=== PATIENT | female | born 1955 | race Caucasian/White ===

== ENCOUNTER 2022-09-24 07:14 | Inpatient (IN) | payer MEDICARE ==
[2022-09-24] VITALS (39 sets, daily range): BP systolic 53–132; BP diastolic 26–91
[~2022-09-24] VITALS: Ht 157.5 cm; Wt 46.3 kg
[2022-09-24] MEDS ORDERED: SODIUM CHLORIDE 0.9% 1000ML BAG (SEPSIS BOLUS) IV ONE (07:45)
[2022-09-24] MEDS ORDERED: DEXTROSE 50% WATER 50ML SYRINGE IV ONE (08:30)
[2022-09-24 08:56] LABS: BG BASE EXCESS -21.4 mmol/L (-2.0-2.0); BG CARBOXYHEMOGLOBIN 0.9 % (0.5-1.5); BG DEOXYHEMOGLOBIN 10.6 % (0.0-5.0); BG FRACTION INSPIRED OXYGEN 30; BG HCO3 ACT 8.5 mmol/L (22.0-26.0); BG METHEMOGLOBIN 0.2 % (0.0-1.5); BG OXYGEN SATURATION 89.3 % (92.0-98.5); BG OXYHEMOGLOBIN 88.3 % (94.0-97.0); BG PCO2 33.4 mmHg (35.0-45.0); BG PH 7.021 (7.350-7.450); BG PO2 59.5 mmHg (75.0-100.0); BG SAMPLE SITE RIGHT RADIAL; BG TOTAL HEMOGLOBIN 11.7 g/dL (12.0-18.0); BG VENT MODE NASAL CANNULA
[2022-09-24] MEDS ORDERED: AMPICILLIN 2,000 MG in SODIUM CHLORIDE 0.9% 100 ML IV STA (09:00)
[2022-09-24] MEDS ORDERED: PIPERACILLIN/TAZ 3.375G PREMIX 50 ML IV ONE (09:00)
[2022-09-24] MEDS ORDERED: CEFEPIME 2,000 MG in DEXT 5% WATER 100 ML IV ONE (09:00)
[2022-09-24] MEDS ORDERED: VANCOMYCIN 1G PREMIX 200 ML IV ONE (09:00)
[2022-09-24] MEDS ORDERED: SODIUM BICARBONATE 8.4% 1 MEQ/ML 50ML SYR IV ONE (09:15)
[2022-09-24] MEDS ORDERED: SODIUM BICARBONATE 150 MEQ in DEXTROSE 5% WATER 1,000 ML IV SCH ×2 (09:30→14:00)
[2022-09-24 09:35] LABS: CHLORIDE 108 mEq/L (98-107)
[2022-09-24 09:47] LABS: ETHANOL BLOOD < 10 mg/dL
[2022-09-24] MEDS ORDERED: IOHEXOL-350 100 ML BOTTLE ONE (09:48)
[2022-09-24 10:05] LABS: PROTHROMBIN TIME 10.9 sec (9.6-11.0)
[2022-09-24] MEDS ORDERED: NOREPINEPHRINE 8 MG in DEXT 5% WATER 242 ML IV STA (10:22)
[2022-09-24] MEDS ORDERED: IPRATROPIUM/ALBUTEROL 0.5-3(2.5)MG/3ML NEB HHN PRN (10:45)
[2022-09-24 10:50] LABS: HEMATOCRIT. 26.7 % (36.0-48.0); HEMOGLOBIN. 7.9 g/dL (12.0-16.0); MEAN CORPUSCULAR HEMOGLOBIN 31.3 pg (28.0-32.0); MEAN CORPUSCULAR VOLUME 105.9 fL (81.0-99.0); RED BLOOD CELL COUNT 2.52 mill/uL (4.2-5.4); RED CELL DISTRIBUTION WIDTH 16.1 % (11.6-14.6)
[2022-09-24] MEDS ORDERED: SODIUM CHLORIDE 0.9% 1,000 ML IV SCH (11:15)
[2022-09-24] MEDS ORDERED: PIPERACILLIN/TAZOBACTAM 3.375 G in DEXTROSE 5% WATER 50 ML IV SCH (11:15)
[2022-09-24] MEDS ORDERED: PHENYLEPHRINE 100 MG in DEXT 5% WATER 240 ML IV PRN (11:15)
[2022-09-24] MEDS ORDERED: ACETAMINOPHEN 325MG TABLET PO PRN (11:15)
[2022-09-24] MEDS ORDERED: NOREPINEPHRINE 8 MG in DEXT 5% WATER 242 ML IV NR (11:15)
[2022-09-24] MEDS ORDERED: ONDANSETRON HCL 4MG/2ML INJ IV PRN (11:15)
[2022-09-24] MEDS ORDERED: NOREPINEPHRINE 32 MG in DEXT 5% WATER 218 ML IV PRN (11:15)
[2022-09-24] MEDS ORDERED: DIPHENHYDRAMINE 50MG/ML VIAL IV PRN (11:15)
[2022-09-24 11:37] LABS: PLATELET ESTIMATE MARKEDLY DECREASED
[2022-09-24 11:41] LABS: MEAN PLATELET VOLUME 8.4 fl (7.4-10.4); PLATELET 34 x1000/uL (130-400)
[2022-09-24] MEDS ORDERED: DEXT 5%/0.9% NACL 1,000 ML IV SCH (11:45)
[2022-09-24] MEDS: NOREPINEPHRINE 32 MG in DEXT 5% WATER 218 ML IV PRN ×2 (11:46→23:18)
[2022-09-24] MEDS ORDERED: VANCOMYCIN 1G PREMIX 200 ML IV NR (12:30)
[2022-09-24] MEDS: PHENYLEPHRINE 100 MG in DEXT 5% WATER 240 ML IV PRN ×2 (12:33→23:19)
[2022-09-24 13:45] LABS: BG BASE EXCESS -16.4 mmol/L (-2.0-2.0); BG CARBOXYHEMOGLOBIN 1.2 % (0.5-1.5); BG DEOXYHEMOGLOBIN 8.3 % (0.0-5.0); BG FRACTION INSPIRED OXYGEN 44; BG HCO3 ACT 13.4 mmol/L (22.0-26.0); BG METHEMOGLOBIN 0.3 % (0.0-1.5); BG OXYGEN SATURATION 91.6 % (92.0-98.5); BG OXYHEMOGLOBIN 90.2 % (94.0-97.0); BG PCO2 47.2 mmHg (35.0-45.0); BG PO2 63.2 mmHg (75.0-100.0); BG SAMPLE SITE RIGHT RADIAL; BG TOTAL HEMOGLOBIN 12.6 g/dL (12.0-18.0); BG VENT MODE NASAL CANNULA
[2022-09-24 14:11] LABS: T4 FREE 0.83 ng/dL (0.76-1.46)
[2022-09-24 14:19] LABS: FERRITIN 146 ng/mL (10-291)
[2022-09-24] MEDS ORDERED: SODIUM BICARBONATE 8.4% 1 MEQ/ML 50ML SYR IV NR (14:30)
[2022-09-24 14:40] LABS: VITAMIN B12 SERUM > 2000.0 pg/mL (211-911)
[2022-09-24] MEDS: PANTOPRAZOLE SODIUM 40 MG/VIAL IV SCH (14:51)
[2022-09-24] MEDS: HYDROCORTISONE SOD SUCCINATE 100 MG/2 ML VIAL IV SCH ×2 (14:52→21:59)
[2022-09-24] MEDS: IRON SUCROSE COMPLEX 100 MG/5 ML ML IV SCH (16:14)
[2022-09-24] MEDS: FENTANYL CITRATE/PF 2,500 MCG in SODIUM CHLORIDE 0.9% 200 ML IV PRN (16:16)
[2022-09-24 16:23] LABS: BG BASE EXCESS -9.8 mmol/L (-2.0-2.0); BG DEOXYHEMOGLOBIN 5.9 % (0.0-5.0); BG FRACTION INSPIRED OXYGEN 100; BG HCO3 ACT 17.7 mmol/L (22.0-26.0); BG METHEMOGLOBIN 0.1 % (0.0-1.5); BG PCO2 44.6 mmHg (35.0-45.0); BG PH 7.216 (7.350-7.450); BG PO2 62.9 mmHg (75.0-100.0); BG SAMPLE SITE RIGHT RADIAL; BG TOTAL HEMOGLOBIN 14.1 g/dL (12.0-18.0); BG VENT MODE VENT - AC
[2022-09-24] MEDS ORDERED: CARV3.1242 MT (17:22)
[2022-09-24] MEDS ORDERED: METH4TAB17 PO (17:22)
[2022-09-24] MEDS ORDERED: FURO-152 MT (17:22)
[2022-09-24] MEDS ORDERED: SACU1TAB7 MT (17:22)
[2022-09-24] MEDS ORDERED: [UNRECOGNIZED DRUG - CODE] IV (17:22)
[2022-09-24 17:37] LABS: HEMATOCRIT 46.3 % (36.0-48.0); HEMOGLOBIN 14.3 g/dL (12.0-16.0)
[2022-09-24] MEDS ORDERED: AZITHROMYCIN 500MG in DEXTROSE 5% WATER 250ML IV NR (18:00)
[2022-09-24] MEDS: METRONIDAZOLE 500 MG PREMIX 100 ML IV SCH (18:26)
[2022-09-24 18:59] LABS: CLARITY URINE TURBID (CLEAR); COLOR URINE YELLOW (YELLOW); KETONES URINE TRACE (NEGATIVE); LEUKOCYTE ESTERASE URINE NEGATIVE (NEGATIVE); NITRITE URINE NEGATIVE (NEGATIVE); OCCULT BLOOD URINE NEGATIVE (NEGATIVE); PROTEIN URINE 1+ (NEGATIVE); SPECIFIC GRAVITY URINE 1.031 (1.005-1.030); UROBILINOGEN URINE 0.2 E.U./dL (0.2-1.0)
[2022-09-24 19:12] LABS: *AMPHETAMINES SCREEN URINE NEGATIVE (NEGATIVE); *BARBITURATES SCREEN URINE PRESUMTIVE POSITIVE (NEGATIVE); *BENZODIAZEPINES SCREEN URINE NEGATIVE (NEGATIVE); *COCAINE SCREEN URINE NEGATIVE (NEGATIVE); CANNABINOID URINE SCREEN NEGATIVE (NEGATIVE); METHADONE URINE SCREEN NEGATIVE (NEGATIVE); OPIATES URINE SCREEN PRESUMTIVE POSITIVE (NEGATIVE); PHENCYCLIDINE URINE SCREEN NEGATIVE (NEGATIVE)
[2022-09-24] MEDS: VASOPRESSIN 20 UNIT in SODIUM CHLORIDE 0.9% 99 ML IV PRN (19:56)
[2022-09-24 23:34] LABS: HEMATOCRIT 42.9 % (36.0-48.0); HEMOGLOBIN 13.9 g/dL (12.0-16.0)
[2022-09-25] VITALS (90 sets, daily range): BP systolic 38–130; BP diastolic 22–118
[2022-09-25] MEDS: SODIUM BICARBONATE 150 MEQ in DEXTROSE 5% WATER 1,000 ML IV SCH ×3 (00:41→23:30)
[2022-09-25] MEDS: HYDROCORTISONE SOD SUCCINATE 100 MG/2 ML VIAL IV SCH ×4 (03:08→21:24)
[2022-09-25] MEDS: METRONIDAZOLE 500 MG PREMIX 100 ML IV SCH ×3 (03:08→17:38)
[2022-09-25 05:52] LABS: CHLORIDE 101 mEq/L (98-107)
[2022-09-25 06:03] LABS: AMYLASE 317 IU/L (25-115); PHOSPHORUS 5.6 mg/dL (2.5-4.9)
[2022-09-25 06:22] LABS: HEMATOCRIT. 42.2 % (36.0-48.0); MEAN CORPUSCULAR HEMOGLOBIN 31.5 pg (28.0-32.0); MEAN PLATELET VOLUME 7.9 fl (7.4-10.4); PLATELET 319 x1000/uL (130-400); RED BLOOD CELL COUNT 4.39 mill/uL (4.2-5.4); RED CELL DISTRIBUTION WIDTH 15.7 % (11.6-14.6)
[2022-09-25 06:45] LABS: HEMOGLOBIN. 13.8 g/dL (12.0-16.0)
[2022-09-25] MEDS ORDERED: POTASSIUM CHLORIDE INJ 40 MEQ in DEXT 5% WATER 250 ML IV NR (08:00)
[2022-09-25] MEDS: PANTOPRAZOLE SODIUM 40 MG/VIAL IV SCH (08:16)
[2022-09-25] MEDS: IPRATROPIUM/ALBUTEROL 0.5-3(2.5)MG/3ML NEB HHN SCH ×2 (08:21→13:38)
[2022-09-25] MEDS: NOREPINEPHRINE 32 MG in DEXT 5% WATER 218 ML IV PRN ×2 (08:24→18:30)
[2022-09-25] MEDS: ALBUTEROL (0.083%) 2.5MG/3ML NEB HHN SCH ×2 (09:00→15:37)
[2022-09-25] MEDS: PHENYLEPHRINE 100 MG in DEXT 5% WATER 240 ML IV PRN ×2 (09:34→19:54)
[2022-09-25 10:00] LABS: PLATELET ESTIMATE NORMAL
[2022-09-25 10:04] LABS: BG BASE EXCESS -11.8 mmol/L (-2.0-2.0); BG CARBOXYHEMOGLOBIN 0.6 % (0.5-1.5); BG FRACTION INSPIRED OXYGEN 100; BG HCO3 ACT 13.9 mmol/L (22.0-26.0); BG METHEMOGLOBIN 0.3 % (0.0-1.5); BG OXYHEMOGLOBIN 95.1 % (94.0-97.0); BG PCO2 31.7 mmHg (35.0-45.0); BG PH 7.261 (7.350-7.450); BG PO2 83.6 mmHg (75.0-100.0); BG SAMPLE SITE RIGHT RADIAL; BG TOTAL HEMOGLOBIN 14.7 g/dL (12.0-18.0); BG VENT MODE VENT - AC
[2022-09-25] MEDS: VASOPRESSIN 20 UNIT in SODIUM CHLORIDE 0.9% 99 ML IV PRN ×2 (10:36→21:20)
[2022-09-25] MEDS ORDERED: SODIUM BICARBONATE 8.4% 1 MEQ/ML 50ML SYR IV NR (11:00)
[2022-09-25] MEDS ORDERED: ALBUMIN HUMAN 25GM/100ML (25%) IV NR (11:30)
[2022-09-25 11:56] LABS: HEMATOCRIT 42.1 % (36.0-48.0); HEMOGLOBIN 13.2 g/dL (12.0-16.0)
[2022-09-25 12:37] LABS: HEPATITIS B SURFACE ANTIGEN NEGATIVE
[2022-09-25] MEDS ORDERED: LACTULOSE 20G/30ML UDC PO SCH (14:00)
[2022-09-25] MEDS: CEFEPIME 1,000 MG in DEXTROSE 5% WATER 50 ML IV SCH (14:43)
[2022-09-25] MEDS: IRON SUCROSE COMPLEX 100 MG/5 ML ML IV SCH (14:44)
[2022-09-25 14:46] LABS: BG BASE EXCESS -9.4 mmol/L (-2.0-2.0); BG CARBOXYHEMOGLOBIN 0.8 % (0.5-1.5); BG FRACTION INSPIRED OXYGEN 100; BG HCO3 ACT 15.3 mmol/L (22.0-26.0); BG OXYHEMOGLOBIN 96.2 % (94.0-97.0); BG PH 7.325 (7.350-7.450); BG PO2 90.4 mmHg (75.0-100.0); BG SAMPLE SITE RIGHT RADIAL; BG TOTAL HEMOGLOBIN 13.3 g/dL (12.0-18.0); BG VENT MODE VENT - AC
[2022-09-25] MEDS ORDERED: CEFEPIME 1,000 MG in DEXTROSE 5% WATER 50 ML IV SCH (15:00)
[2022-09-25] MEDS: AZITHROMYCIN 250 MG in DEXT 5% WATER 250 ML IV SCH (17:38)
[2022-09-25] MEDS: DOPAMINE 400MG/250ML PREMIX 250 ML IV PRN (18:52)
[2022-09-25 19:47] LABS: HEMATOCRIT 40.1 % (36.0-48.0); HEMOGLOBIN 12.3 g/dL (12.0-16.0)
[2022-09-26] VITALS (84 sets, daily range): BP systolic 30–191; BP diastolic 15–106
[2022-09-26 00:28] LABS: HEMATOCRIT 43.1 % (36.0-48.0); HEMOGLOBIN 13.7 g/dL (12.0-16.0)
[2022-09-26] MEDS: HYDROCORTISONE SOD SUCCINATE 100 MG/2 ML VIAL IV SCH ×4 (01:52→21:18)
[2022-09-26] MEDS: METRONIDAZOLE 500 MG PREMIX 100 ML IV SCH ×3 (01:52→17:59)
[2022-09-26] MEDS: NOREPINEPHRINE 32 MG in DEXT 5% WATER 218 ML IV PRN ×2 (05:23→15:39)
[2022-09-26 05:41] LABS: HEMATOCRIT. 43.2 % (36.0-48.0); HEMOGLOBIN. 13.5 g/dL (12.0-16.0); MEAN CORPUSCULAR HEMOGLOBIN 30.9 pg (28.0-32.0); MEAN CORPUSCULAR VOLUME 98.9 fL (81.0-99.0); MEAN PLATELET VOLUME 9.3 fl (7.4-10.4); PLATELET 231 x1000/uL (130-400); RED BLOOD CELL COUNT 4.37 mill/uL (4.2-5.4); RED CELL DISTRIBUTION WIDTH 16.6 % (11.6-14.6)
[2022-09-26] MEDS: PHENYLEPHRINE 100 MG in DEXT 5% WATER 240 ML IV PRN ×2 (06:25→17:58)
[2022-09-26] MEDS ORDERED: SODIUM BICARBONATE 8.4% 1 MEQ/ML 50ML SYR IV NR ×2 (07:12→18:30)
[2022-09-26] MEDS ORDERED: SODIUM POLYSTYRENE SULFONATE 15 G/60 ML BOT PR NR (07:15)
[2022-09-26] MEDS: IPRATROPIUM BROMIDE (0.02%) 0.5MG/2.5ML NEB HHN SCH ×3 (09:03→19:56)
[2022-09-26 09:38] LABS: BG BASE EXCESS -15.4 mmol/L (-2.0-2.0); BG DEOXYHEMOGLOBIN 4.8 % (0.0-5.0); BG FRACTION INSPIRED OXYGEN 100; BG HCO3 ACT 11.2 mmol/L (22.0-26.0); BG METHEMOGLOBIN 0.3 % (0.0-1.5); BG OXYGEN SATURATION 95.2 % (92.0-98.5); BG OXYHEMOGLOBIN 94.9 % (94.0-97.0); BG PCO2 29.2 mmHg (35.0-45.0); BG PH 7.201 (7.350-7.450); BG PO2 90.2 mmHg (75.0-100.0); BG SAMPLE SITE LEFT RADIAL; BG TOTAL HEMOGLOBIN 13.4 g/dL (12.0-18.0); BG TOTAL RESPIRATORY RATE 32 b/min; BG VENT MODE VENT - AC
[2022-09-26] MEDS: VASOPRESSIN 20 UNIT in SODIUM CHLORIDE 0.9% 99 ML IV PRN ×2 (09:54→22:11)
[2022-09-26] MEDS: FENTANYL CITRATE/PF 2,500 MCG in SODIUM CHLORIDE 0.9% 200 ML IV PRN (09:56)
[2022-09-26 10:48] LABS: PLATELET ESTIMATE NORMAL
[2022-09-26] MEDS ORDERED: VANCOMYCIN 1G PREMIX 200 ML IV SCH (11:00)
[2022-09-26] MEDS: PANTOPRAZOLE SODIUM 40 MG/VIAL IV SCH (11:36)
[2022-09-26] MEDS: SODIUM BICARBONATE 150 MEQ in DEXTROSE 5% WATER 1,000 ML IV SCH ×2 (11:37→21:18)
[2022-09-26 13:22] LABS: HEMATOCRIT 46.2 % (36.0-48.0)
[2022-09-26] MEDS ORDERED: LIDOCAINE HCL 1% 30ML VIAL (10MG/ML) ONE (14:09)
[2022-09-26] MEDS ORDERED: SODIUM BICARBONATE 4% (2.4MEQ) 5ML VIAL IV ONE (14:10)
[2022-09-26] MEDS: DOPAMINE 400MG/250ML PREMIX 250 ML IV PRN ×2 (14:52→23:17)
[2022-09-26] MEDS: CEFEPIME 1,000 MG in DEXTROSE 5% WATER 50 ML IV SCH (14:56)
[2022-09-26] MEDS: IRON SUCROSE COMPLEX 100 MG/5 ML ML IV SCH (14:56)
[2022-09-26] MEDS ORDERED: SODIUM CHLORIDE 0.9% 500 ML IV ONE (17:00)
[2022-09-26 17:32] LABS: BG BASE EXCESS -15.5 mmol/L (-2.0-2.0); BG CARBOXYHEMOGLOBIN 0.8 % (0.5-1.5); BG FRACTION INSPIRED OXYGEN 100; BG HCO3 ACT 9.9 mmol/L (22.0-26.0); BG METHEMOGLOBIN 0.1 % (0.0-1.5); BG OXYHEMOGLOBIN 95.1 % (94.0-97.0); BG PCO2 23.2 mmHg (35.0-45.0); BG PH 7.246 (7.350-7.450); BG PO2 99.5 mmHg (75.0-100.0); BG SAMPLE SITE RIGHT RADIAL; BG TOTAL HEMOGLOBIN 13.7 g/dL (12.0-18.0); BG TOTAL RESPIRATORY RATE 34 b/min; BG VENT MODE VENT - AC
[2022-09-26] MEDS: AZITHROMYCIN 250 MG in DEXT 5% WATER 250 ML IV SCH (17:59)
[2022-09-26] MEDS: ALBUTEROL (0.083%) 2.5MG/3ML NEB HHN SCH (19:50)
[2022-09-27] VITALS (47 sets, daily range): BP systolic 27–131; BP diastolic 13–75
[2022-09-27] MEDS: NOREPINEPHRINE 32 MG in DEXT 5% WATER 218 ML IV PRN ×2 (01:15→08:38)
[2022-09-27] MEDS: METRONIDAZOLE 500 MG PREMIX 100 ML IV SCH ×2 (01:17→09:00)
[2022-09-27] MEDS: ALBUTEROL (0.083%) 2.5MG/3ML NEB HHN SCH ×2 (02:07→09:01)
[2022-09-27] MEDS: IPRATROPIUM BROMIDE (0.02%) 0.5MG/2.5ML NEB HHN SCH ×2 (02:07→09:00)
[2022-09-27] MEDS: HYDROCORTISONE SOD SUCCINATE 100 MG/2 ML VIAL IV SCH ×2 (02:30→08:34)
[2022-09-27] MEDS: PHENYLEPHRINE 100 MG in DEXT 5% WATER 240 ML IV PRN ×2 (04:28→12:04)
[2022-09-27] MEDS: DOPAMINE 400MG/250ML PREMIX 250 ML IV PRN ×2 (06:04→12:05)
[2022-09-27 06:32] LABS: HEMATOCRIT. 42.8 % (36.0-48.0); HEMOGLOBIN. 12.4 g/dL (12.0-16.0); MEAN CORPUSCULAR HEMOGLOBIN 31.8 pg (28.0-32.0); MEAN PLATELET VOLUME 9.8 fl (7.4-10.4); PLATELET 193 x1000/uL (130-400); RED BLOOD CELL COUNT 3.89 mill/uL (4.2-5.4); RED CELL DISTRIBUTION WIDTH 18.3 % (11.6-14.6)
[2022-09-27 08:20] LABS: NUCLEATED RED BLOOD CELLS 2 /100 WBC
[2022-09-27 08:22] LABS: PLATELET ESTIMATE NORMAL
[2022-09-27] MEDS: SODIUM BICARBONATE 150 MEQ in DEXTROSE 5% WATER 1,000 ML IV SCH (08:34)
[2022-09-27] MEDS: VASOPRESSIN 20 UNIT in SODIUM CHLORIDE 0.9% 99 ML IV PRN (08:35)
[2022-09-27] MEDS: PANTOPRAZOLE SODIUM 40 MG/VIAL IV SCH (08:48)
[2022-09-27] MEDS ORDERED: LACTULOSE ENEMA 1,000ML BOTTLE PR SCH (09:00)
[2022-09-27 09:09] LABS: BG BASE EXCESS -26.7 mmol/L (-2.0-2.0); BG CARBOXYHEMOGLOBIN 0.6 % (0.5-1.5); BG DEOXYHEMOGLOBIN 2.2 % (0.0-5.0); BG FRACTION INSPIRED OXYGEN 100; BG METHEMOGLOBIN 0.3 % (0.0-1.5); BG OXYGEN SATURATION 97.8 % (92.0-98.5); BG OXYHEMOGLOBIN 96.9 % (94.0-97.0); BG PCO2 25.1 mmHg (35.0-45.0); BG PH 6.913 (7.350-7.450); BG PO2 157.6 mmHg (75.0-100.0); BG SAMPLE SITE LEFT RADIAL; BG TOTAL HEMOGLOBIN 12.7 g/dL (12.0-18.0); BG TOTAL RESPIRATORY RATE 36 b/min; BG VENT MODE VENT - AC
[2022-09-27] MEDS ORDERED: SODIUM BICARBONATE 8.4% 1 MEQ/ML 50ML SYR IV SCH ×2 (10:00→13:00)
[2022-09-27 10:06] LABS: ANTI-NUCLEAR ANTIBODIES DIRECT Negative (Negative)
[2022-09-27 12:19] LABS: BG BASE EXCESS -22.8 mmol/L (-2.0-2.0); BG CARBOXYHEMOGLOBIN 0.4 % (0.5-1.5); BG DEOXYHEMOGLOBIN 4.4 % (0.0-5.0); BG FRACTION INSPIRED OXYGEN 100; BG HCO3 ACT 7.1 mmol/L (22.0-26.0); BG METHEMOGLOBIN 0.2 % (0.0-1.5); BG OXYGEN SATURATION 95.6 % (92.0-98.5); BG PCO2 28.9 mmHg (35.0-45.0); BG PO2 115.4 mmHg (75.0-100.0); BG SAMPLE SITE LEFT RADIAL; BG TOTAL HEMOGLOBIN 12.4 g/dL (12.0-18.0); BG TOTAL RESPIRATORY RATE 34 b/min; BG VENT MODE VENT - AC
[2022-09-27] MEDS ORDERED: DEXTROSE 50% WATER 50ML SYRINGE IV PRN (12:45)
[2022-09-27] MEDS ORDERED: BLOOD SUGAR DIAGNOSTIC STRIP TEST SCH (12:50)
[2022-09-27] MEDS ORDERED: SODIUM POLYSTYRENE SULFONATE 15 G/60 ML BOT PR SCH (13:00)
[2022-09-27] MEDS ORDERED: INSULIN LISPRO 100 UNITS/ML SUBCUT SCH (13:20)
[2022-09-27] MEDS ORDERED: MORPHINE SULFATE 250 MG in DEXT 5% WATER 225 ML IV PRN (14:00)
[2022-09-27] MEDS ORDERED: CALCIUM GLUCONATE 1GM PREMIX 50 ML IV SCH (14:00)
== END 2022-09-27 23:28 | DRG 871 ==
LOC: ER 07:21 → UNDOADMIN 10:20 → MICUSO 10:20 → CVICU 10:20 → EDBEDREQ 10:25
PROVIDERS: ADMIT Internal Medicine; ATTEND Internal Medicine
PROC: 0BH17EZ Insertion of Endotracheal Airway into Trachea, Via Natural or Artificial Opening (ICD-10-PCS; principal; 2022-09-24)
PROC: 5A1945Z Respiratory Ventilation, 24-96 Consecutive Hours (ICD-10-PCS; 2022-09-24)
PROC: 05HY33Z Insertion of Infusion Device into Upper Vein, Percutaneous Approach (ICD-10-PCS; 2022-09-24)
PROC: B54MZZA Ultrasonography of Right Upper Extremity Veins, Guidance (ICD-10-PCS; 2022-09-24)
DX: A41.9 Sepsis, unspecified organism (principal); G92.8 Other toxic encephalopathy; J69.0 Pneumonitis due to inhalation of food and vomit; R65.21 Severe sepsis with septic shock; N17.0 Acute kidney failure with tubular necrosis; K72.00 Acute and subacute hepatic failure without coma; K85.90 Acute pancreatitis without necrosis or infection, unspecified; J96.01 Acute respiratory failure with hypoxia; E87.21 Acute metabolic acidosis; I13.0 Hypertensive heart and chronic kidney disease with heart failure and stage 1 through stage 4 chronic kidney disease, or unspecified chronic kidney disease; I50.20 Unspecified systolic (congestive) heart failure; E44.0 Moderate protein-calorie malnutrition; K80.10 Calculus of gallbladder with chronic cholecystitis without obstruction; J98.11 Atelectasis; I42.8 Other cardiomyopathies; E72.4 Disorders of ornithine metabolism; Z68.1 Body mass index [BMI] 19.9 or less, adult; N18.9 Chronic kidney disease, unspecified; N85.4 Malposition of uterus; Z20.822 Contact with and (suspected) exposure to COVID-19; I25.10 Atherosclerotic heart disease of native coronary artery without angina pectoris; D25.9 Leiomyoma of uterus, unspecified; F17.210 Nicotine dependence, cigarettes, uncomplicated; K57.30 Diverticulosis of large intestine without perforation or abscess without bleeding; D53.9 Nutritional anemia, unspecified; D69.6 Thrombocytopenia, unspecified; E86.9 Volume depletion, unspecified; K80.50 Calculus of bile duct without cholangitis or cholecystitis without obstruction; H02.402 Unspecified ptosis of left eyelid; R74.01 Elevation of levels of liver transaminase levels; K82.8 Other specified diseases of gallbladder; Z85.01 Personal history of malignant neoplasm of esophagus; Z95.810 Presence of automatic (implantable) cardiac defibrillator; Z92.21 Personal history of antineoplastic chemotherapy; Z78.9 Other specified health status; Z86.73 Personal history of transient ischemic attack (TIA), and cerebral infarction without residual deficits; Z87.01 Personal history of pneumonia (recurrent); E16.2 Hypoglycemia, unspecified
CPT/HCPCS: 31500; 36415; 36573; 36600; 70496; 70498; 71045; 71275; 74174; 76705; 76942; 78227; 80048; 80053; 80061; 80076; 80202; 80305; 80320; 81003; 82140; 82150; 82375; 82550; 82570; 82607; 82728; 82746; 82805; 82962; 83010; 83036; 83540; 83550; 83605; 83735; 83880; 84100; 84145; 84300; 84439; 84443; 84484; 84550; 85014; 85018; 85025; 85044; 86038; 86160; 86705; 86709; 86710; 86803; 86850; 86900; 87070; 87077; 87186; 87340; 87426; 87804; 93005; 93306; 93970; 94002; 94003; 94640; 99291; A9537; C1725; C1769; C1892; C9113; C9803; J0290; J0456; J0610; J0692; J1265; J1720; J2370; J3010; J3370; J3480; J3490; J7030; J7050; J7060; J7070; P9047; Q9967; G0480